=== PATIENT | female | born 1995 | race Caucasian/White ===

== ENCOUNTER 2019-11-16 20:29 | Emergency (ER) | payer BC ==
[2019-11-16] MEDS ORDERED: Ondansetron 4 MG Tab.DIS PO ONE (21:07)
[2019-11-16] MEDS ORDERED: Ketorolac 30 MG/ML SDV IM ONE (21:07)
--- NOTE | 2019-11-16 21:13 | EDM.PDOC ---
ED HPI GENERAL MEDICAL PROBLEM - General Chief Complaint: Abdominal Pain Stated Complaint: STOMACH PAIN Time Seen by Provider: 11/16/19 21:00 Source of Information: Reports: Patient History Limitations: Reports: No Limitations - History of Present Illness INITIAL COMMENTS - FREE TEXT/NARRATIVE: Janiya comes into [facility] ED with acute onset of midline upper abdominal pain, crampy in nature, with some nausea but no emesis. Pain does not radiate into the back, CVA, or pelvis. There are no voiding sxs. There is no known exposure, fever, chills, or sweats. Her general health is good, 7 mos post , and no BCP. She tried some Naproxen without benefit. Her LMP November 03. R lower abdomen Pain Score (Numeric/FACES): 7 - Related Data Allergies Allergy/AdvReac Type Severity Reaction Status Date / Time No Known Allergies Allergy Verified 11/16/19 20:39 Past Medical History - Past Health History Medical/Surgical History: Denies Medical/Surgical History Gastrointestinal History: Reports: Inflammatory Bowel Disease CHARGE ATTENDANT History: Reports: Endometriosis, Other CHARGE ATTENDANT History: [id number] Neurological History: Reports: Concussion Psychiatric History: Reports: Anxiety, Depression Hematologic History: Reports: Anemia, Iron Deficiency Dermatologic History: Reports: Eczema - Infectious Disease History Infectious Disease History: Reports: Chicken Pox - Past Surgical History GI Surgical History: Reports: Colonoscopy Social & Family History - Family History Family Medical History: Noncontributory - Tobacco Use Smoking Status *Q: Former Smoker Years of Tobacco use: 1 Used Tobacco, but Quit: Yes Month/Year Tobacco Last Used: jul - Caffeine Use Caffeine Use: Reports: Coffee, Soda, Tea - Alcohol Use Days Per Week of Alcohol Use: 1 Number of Drinks Per Day: 2 Total Drinks Per Week: 2 - Recreational Drug Use Recreational Drug Use: No ED ROS GENERAL - Review of Systems Review Of Systems: See Below Constitutional: Reports: No Symptoms HEENT: Reports: No Symptoms Respiratory: Reports: No Symptoms Cardiovascular: Reports: No Symptoms Endocrine: Reports: No Symptoms GI/Abdominal: Reports: Abdominal Pain, Decreased Appetite, Nausea : Reports: No Symptoms Musculoskeletal: Reports: No Symptoms Skin: Reports: No Symptoms Neurological: Reports: No Symptoms Psychiatric: Reports: No Symptoms Hematologic/Lymphatic: Reports: No Symptoms Immunologic: Reports: No Symptoms ED EXAM, GI/ABD - Physical Exam Exam: See Below Exam Limited By: No Limitations General Appearance: Alert, WD/WN, Mild Distress Eyes: Bilateral: Normal Appearance, EOMI Ears: Normal External Exam Nose: Normal Inspection Throat/Mouth: Normal Inspection, Normal Oropharynx Head: Normocephalic Neck: Normal Inspection, Supple, Non-Tender Respiratory/Chest: Lungs Clear, Chest Non-Tender Cardiovascular: Normal Peripheral Pulses, Regular Rate, Rhythm, No Edema, No Murmur GI/Abdominal Exam: Normal Bowel Sounds, Soft, No Organomegaly, No Mass, Tender ( limited tenderness mid upper L abdomen with some guarding, mild distention, no rebound or rigidity) (Female) Exam: Deferred Rectal (Female) Exam: Deferred Back Exam: Normal Inspection Extremities: Normal Inspection Neurological: Alert, Oriented, CN II-XII Intact, Normal Cognition, No Motor/ Sensory Deficits Psychiatric: Normal Affect, Normal Mood Skin Exam: Warm, Dry, Intact, Normal Color, No Rash Lymphatic: No Adenopathy Course - Vital Signs Text/Narrative:: Following initial assessment, I administered Toradol 30 mg IM and Zofran ODT 4 mg SL while awaiting initial screening labs: CBC, CMP and UA are all baseline. Abdominal pain subsided in 1/2 hour without sequelae. Last Recorded V/S: Last Vital Signs Temp 36.8 C 11/16/19 20:35 Pulse 80 11/16/19 20:35 Resp 18 11/16/19 20:35 BP 134/77 11/16/19 20:35 Pulse Ox 99 11/16/19 20:35 - Orders/Labs/Meds Labs: Laboratory Tests 11/16/19 11/16/19 11/16/19 Range/Units 20:45 20:55 20:55 WBC 8.0 (4.5-12.0) X10-3/uL RBC 4.61 (3.23-5.20) x10(6)uL Hgb 13.5 (11.5-15.5) g/dL Hct 41.1 (30.0-51.3) % MCV 89.1 (80-96) fL MCH 29.3 (27.7-33.6) pg MCHC 32.8 (32.2-35.4) g/dL RDW 12.7 (11.5-15.5) % Plt Count 227 (125-369) X10(3)uL MPV 9.5 (7.4-10.4) fL Neut % (Auto) 52.2 (46-82) % Lymph % (Auto) 36.8 (13-37) % Brown % (Auto) 7.2 (4-12) % Eos % (Auto) 2 (1.0-5.0) % Baso % (Auto) 2 (0-2) % Neut # (Auto) 4.2 (1.6-8.3) # Lymph # (Auto) 2.9 (0.6-5.0) # Brown # (Auto) 0.6 (0.0-1.3) # Eos # (Auto) 0.2 (0.0-0.8) # Baso # (Auto) 0.1 (0.0-0.2) # Sodium 141 (135-145) mmol/L Potassium 3.9 (3.5-5.3) mmol/L Chloride 102 (100-110) mmol/L Carbon Dioxide 25 (21-32) mmol/L BUN 15 (7-18) mg/dL Creatinine 0.8 (0.55-1.02) mg/dL Est Cr Clr Drug Dosing 103.63 mL/min Estimated GFR (MDRD) > 60 (>60) BUN/Creatinine Ratio 18.8 (9-20) Glucose 77 L (80-116) mg/dL Calcium 9.3 (8.6-10.2) mg/dL Total Bilirubin 0.3 (0.1-1.3) mg/dL AST 22 (5-25) IU/L ALT 20 (12-36) U/L Alkaline Phosphatase 123 H (56-112) IU/L Total Protein 9.1 H (6.0-8.0) g/dL Albumin 4.6 (3.5-5.2) g/dL Globulin 4.5 g/dL Albumin/Globulin Ratio 1.0 Urine Color Yellow (YELLOW) Urine Appearance Clear (CLEAR) Urine pH 8.0 H (5.0-6.5) Ur Specific [place] 1.010 (1.010-1.025) Urine Protein Negative (NEGATIVE) mg/dL Urine Glucose (UA) Normal (NORMAL) mg/dL Urine Ketones 15 H (NEGATIVE) mg/dL Urine Occult Blood Negative (NEGATIVE) Urine Nitrite Negative (NEGATIVE) Urine Bilirubin Negative (NEGATIVE) Urine Urobilinogen Normal (NEGATIVE) mg/dL Ur Leukocyte Esterase Negative (NEGATIVE) Urine RBC 0-5 (0-5) Urine WBC 0-5 (0-5) Ur Squamous Epith Cells Few H (NS,R,O) Urine Bacteria Few H (NS) Meds: Medications Discontinued Medications Generic Name Dose Route Start Last Admin Trade Name Freq PRN Reason Stop Dose Admin Ketorolac Tromethamine 30 mg 11/16/19 21:07 11/16/19 21:17 Toradol IM 11/16/19 21:08 30 mg ONETIME ONE Administration Ondansetron HCl 4 mg 11/16/19 21:07 11/16/19 21:17 Zofran Odt PO 11/16/19 21:08 4 mg ONETIME ONE Administration Departure - Departure Time of Disposition: 22:09 Disposition: Home, Self-Care 01 Condition: Good Clinical Impression: Abdominal pain Qualifiers: Abdominal location: left upper quadrant Qualified Code(s): R10.12 - Left upper quadrant pain - Discharge Information *PRESCRIPTION DRUG MONITORING PROGRAM REVIEWED*: Not Applicable *COPY OF PRESCRIPTION DRUG MONITORING REPORT IN PATIENT AMADA: Not Applicable Referrals: Wendy Dobbins PA-C [Primary Care Provider] - Forms: ED Department Discharge Sepsis Event Note - Evaluation Sepsis Screening Result: No Definite Risk - Focused Exam Vital Signs: Vital Signs Temp Pulse Resp BP Pulse Ox 11/16/19 20:35 36.8 C 80 18 134/77 99 Date Exam was Performed: 11/16/19 Time Exam was Performed: 22:07 - Problem List & Annotations (1) Abdominal pain SNOMED Code(s): 33455155 Code(s): R10.9 - UNSPECIFIED ABDOMINAL PAIN Status: Acute Current Visit: Yes Annotation/Comment:: Abdominal Pain NOS, gastrointestinal, possibly related to afternoon meal. She is now completely asx. I suggested no solids tonight, resume activity and diet in the am. Qualifiers: Abdominal location: left upper quadrant Qualified Code(s): R10.12 - Left upper quadrant pain - Problem List Review Problem List Initiated/Reviewed/Updated: Yes - Assessment/Plan Plan: Follow up with PCP if needed.
== END 2019-11-16 22:15 | disposition home or self-care (01) ==
LOC: FB.ED 20:29
DX: R10.12 Left upper quadrant pain (principal); Z87.891 Personal history of nicotine dependence
CPT/HCPCS: 36415; 80053; 81001; 85025; 96372; 99284; A9270; J1885